=== PATIENT | female | born 1955 | race Caucasian/White ===

== ENCOUNTER → 2020-04-16 | Outpatient (CLI) | payer OTHER ==
[~2020-04-16] MED LIST: AMOXICILLIN500 MG PO; ASPIRIN EC81 MG PO; CELEBREX200 MG PO; COLLAGEN PLUS1 EACH PO; DESMOPRESSIN A0.1 M1 PO; ESCITALOPRAM OX20 MG PO; HYDROCODON-ACE1 EAC6 PO; LEVOTHYROXINE25 MCG PO; LOSARTAN POTAS100 MG PO; LOVASTATIN20 MG PO; PROTONIX 40 MG40 M1 PO
== END ==
LOC: WCC 08:54
PROC: 0JBP0ZZ Excision of Left Lower Leg Subcutaneous Tissue and Fascia, Open Approach (ICD-10-PCS; principal; 2020-04-16)
DX: I83.023 Varicose veins of left lower extremity with ulcer of ankle (principal); L97.822 Non-pressure chronic ulcer of other part of left lower leg with fat layer exposed; I73.9 Peripheral vascular disease, unspecified; I87.2 Venous insufficiency (chronic) (peripheral); G89.29 Other chronic pain; I10 Essential (primary) hypertension; E78.49 Other hyperlipidemia; Z72.0 Tobacco use; I87.1 Compression of vein; Z88.1 Allergy status to other antibiotic agents; Z79.899 Other long term (current) drug therapy

== ENCOUNTER → 2020-04-23 | Outpatient (CLI) | payer OTHER | LOC: WCC 09:00 | PROC: 0KBT0ZZ Excision of Left Lower Leg Muscle, Open Approach (ICD-10-PCS; principal; 2020-04-23) | DX: L97.825 Non-pressure chronic ulcer of other part of left lower leg with muscle involvement without evidence of necrosis (principal); Z88.1 Allergy status to other antibiotic agents; Z79.899 Other long term (current) drug therapy ==

== ENCOUNTER → 2020-04-30 | Outpatient (CLI) | payer OTHER | LOC: WCC 09:00 | PROC: 0KBT0ZZ Excision of Left Lower Leg Muscle, Open Approach (ICD-10-PCS; principal; 2020-04-30) | DX: I83.023 Varicose veins of left lower extremity with ulcer of ankle (principal); L97.325 Non-pressure chronic ulcer of left ankle with muscle involvement without evidence of necrosis; G89.29 Other chronic pain; I10 Essential (primary) hypertension; E78.49 Other hyperlipidemia; Z72.0 Tobacco use; I87.1 Compression of vein ==

== ENCOUNTER → 2020-05-07 | Outpatient (CLI) | payer OTHER | LOC: WCC 09:00 | PROC: 0JBP0ZZ Excision of Left Lower Leg Subcutaneous Tissue and Fascia, Open Approach (ICD-10-PCS; principal; 2020-05-07) | DX: I83.023 Varicose veins of left lower extremity with ulcer of ankle (principal); L97.322 Non-pressure chronic ulcer of left ankle with fat layer exposed; I87.2 Venous insufficiency (chronic) (peripheral); I96 Gangrene, not elsewhere classified; G89.29 Other chronic pain; I10 Essential (primary) hypertension; E78.49 Other hyperlipidemia; I87.1 Compression of vein; H26.9 Unspecified cataract; M19.90 Unspecified osteoarthritis, unspecified site; Z88.1 Allergy status to other antibiotic agents; Z79.2 Long term (current) use of antibiotics; Z79.1 Long term (current) use of non-steroidal anti-inflammatories (NSAID); Z79.899 Other long term (current) drug therapy ==

== ENCOUNTER → 2020-05-14 | Outpatient (CLI) | payer OTHER | LOC: WCC 09:00 | PROC: 0KBT0ZZ Excision of Left Lower Leg Muscle, Open Approach (ICD-10-PCS; principal; 2020-05-14) | DX: I83.023 Varicose veins of left lower extremity with ulcer of ankle (principal); L97.323 Non-pressure chronic ulcer of left ankle with necrosis of muscle; I87.2 Venous insufficiency (chronic) (peripheral); G89.29 Other chronic pain; I87.1 Compression of vein; I10 Essential (primary) hypertension; E78.49 Other hyperlipidemia; Z88.1 Allergy status to other antibiotic agents; Z79.2 Long term (current) use of antibiotics; Z79.1 Long term (current) use of non-steroidal anti-inflammatories (NSAID); Z79.899 Other long term (current) drug therapy ==

== ENCOUNTER → 2020-05-21 | Outpatient (CLI) | payer OTHER | END | disposition home or self-care (01) | LOC: WCC 09:00 | PROC: 0HBNXZZ Excision of Left Foot Skin, External Approach (ICD-10-PCS; principal; 2020-05-21) | DX: I83.023 Varicose veins of left lower extremity with ulcer of ankle (principal); I73.9 Peripheral vascular disease, unspecified; I87.2 Venous insufficiency (chronic) (peripheral); G89.29 Other chronic pain; I10 Essential (primary) hypertension; E78.49 Other hyperlipidemia; I87.1 Compression of vein; Z72.0 Tobacco use ==

== ENCOUNTER → 2020-06-04 | Outpatient (CLI) | payer OTHER | LOC: WCC 09:00 | PROC: 0KBT0ZZ Excision of Left Lower Leg Muscle, Open Approach (ICD-10-PCS; principal; 2020-06-04) | DX: I96 Gangrene, not elsewhere classified (principal); L97.523 Non-pressure chronic ulcer of other part of left foot with necrosis of muscle; H26.9 Unspecified cataract; I10 Essential (primary) hypertension; M19.90 Unspecified osteoarthritis, unspecified site; Z88.0 Allergy status to penicillin; Z79.2 Long term (current) use of antibiotics; Z79.891 Long term (current) use of opiate analgesic; Z79.1 Long term (current) use of non-steroidal anti-inflammatories (NSAID); Z79.899 Other long term (current) drug therapy ==

== ENCOUNTER → 2020-06-20 | Outpatient (CLI) | payer OTHER | LOC: WCC 09:23 | PROC: 0KBT0ZZ Excision of Left Lower Leg Muscle, Open Approach (ICD-10-PCS; principal; 2020-06-20) | DX: I83.023 Varicose veins of left lower extremity with ulcer of ankle (principal); L97.323 Non-pressure chronic ulcer of left ankle with necrosis of muscle; I96 Gangrene, not elsewhere classified; I87.2 Venous insufficiency (chronic) (peripheral); G89.29 Other chronic pain; I10 Essential (primary) hypertension; I87.1 Compression of vein; E78.49 Other hyperlipidemia; H26.9 Unspecified cataract; M19.90 Unspecified osteoarthritis, unspecified site; Z79.891 Long term (current) use of opiate analgesic; Z79.2 Long term (current) use of antibiotics; Z79.899 Other long term (current) drug therapy; Z79.1 Long term (current) use of non-steroidal anti-inflammatories (NSAID); Z88.1 Allergy status to other antibiotic agents ==

== ENCOUNTER → 2020-06-27 | Outpatient (CLI) | payer OTHER | LOC: WCC 09:29 | PROC: 0KBT0ZZ Excision of Left Lower Leg Muscle, Open Approach (ICD-10-PCS; principal; 2020-06-27) | DX: I83.023 Varicose veins of left lower extremity with ulcer of ankle (principal); L97.323 Non-pressure chronic ulcer of left ankle with necrosis of muscle; I96 Gangrene, not elsewhere classified; I87.2 Venous insufficiency (chronic) (peripheral); G89.29 Other chronic pain; I10 Essential (primary) hypertension; H26.9 Unspecified cataract; M19.90 Unspecified osteoarthritis, unspecified site; E78.49 Other hyperlipidemia; I87.1 Compression of vein; Z79.1 Long term (current) use of non-steroidal anti-inflammatories (NSAID); Z79.891 Long term (current) use of opiate analgesic; Z79.2 Long term (current) use of antibiotics; Z79.899 Other long term (current) drug therapy; Z88.1 Allergy status to other antibiotic agents ==

== ENCOUNTER → 2020-07-04 | Outpatient (CLI) | payer OTHER | LOC: WCC 09:30 | PROC: 0HRNXJZ Replacement of Left Foot Skin with Synthetic Substitute, External Approach (ICD-10-PCS; principal; 2020-07-04) | DX: I83.023 Varicose veins of left lower extremity with ulcer of ankle (principal); L97.323 Non-pressure chronic ulcer of left ankle with necrosis of muscle; I96 Gangrene, not elsewhere classified; I87.2 Venous insufficiency (chronic) (peripheral); G89.29 Other chronic pain; I10 Essential (primary) hypertension; E78.49 Other hyperlipidemia; I87.1 Compression of vein; M19.90 Unspecified osteoarthritis, unspecified site; H26.9 Unspecified cataract; Z79.1 Long term (current) use of non-steroidal anti-inflammatories (NSAID); Z79.891 Long term (current) use of opiate analgesic; Z79.2 Long term (current) use of antibiotics; Z79.899 Other long term (current) drug therapy; Z88.1 Allergy status to other antibiotic agents | CPT/HCPCS: Q4101 ==

== ENCOUNTER → 2020-07-11 | Outpatient (CLI) | payer OTHER | LOC: WCC 09:30 | PROC: 0HRLXJZ Replacement of Left Lower Leg Skin with Synthetic Substitute, External Approach (ICD-10-PCS; principal; 2020-07-11) | PROC: 2W1RX6Z Compression of Left Lower Leg using Pressure Dressing (ICD-10-PCS; 2020-07-11) | DX: I83.023 Varicose veins of left lower extremity with ulcer of ankle (principal); L97.323 Non-pressure chronic ulcer of left ankle with necrosis of muscle; I96 Gangrene, not elsewhere classified; I87.2 Venous insufficiency (chronic) (peripheral); G89.29 Other chronic pain; I10 Essential (primary) hypertension; E78.49 Other hyperlipidemia; M19.90 Unspecified osteoarthritis, unspecified site; I87.1 Compression of vein; Z79.1 Long term (current) use of non-steroidal anti-inflammatories (NSAID); Z79.2 Long term (current) use of antibiotics; Z79.899 Other long term (current) drug therapy; Z88.1 Allergy status to other antibiotic agents | CPT/HCPCS: 97605; Q4101 ==

== ENCOUNTER → 2020-07-18 | Outpatient (CLI) | payer OTHER | LOC: WCC 09:21 | PROC: 0KBT0ZZ Excision of Left Lower Leg Muscle, Open Approach (ICD-10-PCS; principal; 2020-07-18) | PROC: 2W1RX6Z Compression of Left Lower Leg using Pressure Dressing (ICD-10-PCS; 2020-07-18) | DX: I83.023 Varicose veins of left lower extremity with ulcer of ankle (principal); L97.323 Non-pressure chronic ulcer of left ankle with necrosis of muscle; I96 Gangrene, not elsewhere classified; I87.2 Venous insufficiency (chronic) (peripheral); G89.29 Other chronic pain; I10 Essential (primary) hypertension; I87.1 Compression of vein; E78.49 Other hyperlipidemia; H26.9 Unspecified cataract; M19.90 Unspecified osteoarthritis, unspecified site; Z79.1 Long term (current) use of non-steroidal anti-inflammatories (NSAID); Z79.891 Long term (current) use of opiate analgesic; Z79.2 Long term (current) use of antibiotics; Z79.899 Other long term (current) drug therapy; Z88.1 Allergy status to other antibiotic agents ==

== ENCOUNTER → 2020-07-25 | Outpatient (CLI) | payer OTHER | LOC: WCC 09:30 | PROC: 0HRNXJZ Replacement of Left Foot Skin with Synthetic Substitute, External Approach (ICD-10-PCS; principal; 2020-07-25) | PROC: 2W1RX6Z Compression of Left Lower Leg using Pressure Dressing (ICD-10-PCS; 2020-07-25) | DX: I83.023 Varicose veins of left lower extremity with ulcer of ankle (principal); L97.323 Non-pressure chronic ulcer of left ankle with necrosis of muscle; I96 Gangrene, not elsewhere classified; I87.2 Venous insufficiency (chronic) (peripheral); I10 Essential (primary) hypertension; G89.29 Other chronic pain; E78.49 Other hyperlipidemia; I87.1 Compression of vein; H26.9 Unspecified cataract; M19.90 Unspecified osteoarthritis, unspecified site; Z79.1 Long term (current) use of non-steroidal anti-inflammatories (NSAID); Z79.891 Long term (current) use of opiate analgesic; Z79.2 Long term (current) use of antibiotics; Z79.899 Other long term (current) drug therapy; Z88.1 Allergy status to other antibiotic agents | CPT/HCPCS: 97605; Q4101 ==

== ENCOUNTER → 2020-08-01 | Outpatient (CLI) | payer OTHER | LOC: WCC 09:30 | DX: Z53.9 Procedure and treatment not carried out, unspecified reason (principal) ==

== ENCOUNTER → 2020-08-02 | Outpatient (CLI) | payer OTHER | LOC: WCC 11:30 | PROC: 0JBP0ZZ Excision of Left Lower Leg Subcutaneous Tissue and Fascia, Open Approach (ICD-10-PCS; principal; 2020-08-02) | DX: I83.023 Varicose veins of left lower extremity with ulcer of ankle (principal); I96 Gangrene, not elsewhere classified; L97.323 Non-pressure chronic ulcer of left ankle with necrosis of muscle; I87.2 Venous insufficiency (chronic) (peripheral); G89.29 Other chronic pain; I10 Essential (primary) hypertension; E78.49 Other hyperlipidemia; M19.90 Unspecified osteoarthritis, unspecified site; Z79.1 Long term (current) use of non-steroidal anti-inflammatories (NSAID); Z79.891 Long term (current) use of opiate analgesic; Z79.2 Long term (current) use of antibiotics; Z79.899 Other long term (current) drug therapy; Z88.1 Allergy status to other antibiotic agents | CPT/HCPCS: 87070; 87077; 87186; 87205 ==

== ENCOUNTER → 2020-08-16 | Outpatient (CLI) | payer OTHER | LOC: WCC 09:30 | DX: I83.023 Varicose veins of left lower extremity with ulcer of ankle (principal); I87.2 Venous insufficiency (chronic) (peripheral); L97.822 Non-pressure chronic ulcer of other part of left lower leg with fat layer exposed; I73.9 Peripheral vascular disease, unspecified; G89.29 Other chronic pain; I10 Essential (primary) hypertension; E78.49 Other hyperlipidemia; F17.200 Nicotine dependence, unspecified, uncomplicated; I87.1 Compression of vein; Z88.1 Allergy status to other antibiotic agents; Z79.2 Long term (current) use of antibiotics; Z79.891 Long term (current) use of opiate analgesic; Z79.899 Other long term (current) drug therapy ==

== ENCOUNTER → 2020-11-08 | Outpatient (CLI) | payer MEDICARE | LOC: EXRD 09:48 | DX: R07.81 Pleurodynia (principal); M85.80 Other specified disorders of bone density and structure, unspecified site | CPT/HCPCS: 71101 ==

== ENCOUNTER → 2021-03-28 | Outpatient (CLI) | payer MEDICARE | LOC: CT 03-04 08:30 | DX: K44.9 Diaphragmatic hernia without obstruction or gangrene (principal); R10.9 Unspecified abdominal pain; R11.0 Nausea | CPT/HCPCS: 36415; 82565; Q9967 ==

== ENCOUNTER 2021-05-14 12:51 | Emergency (ER) | payer MEDICARE ==
[2021-05-14 13:37] LABS: HEMOGLOBIN 13.2 gm/dl (12.3-15.3); RED BLOOD COUNT 4.04 M/UL (4.00-5.10); WHITE BLOOD COUNT 12.1 K/UL (4.5-11.0)
[2021-05-14 13:56] LABS: BUN/CREATININE RATIO 19 (0-10)
[2021-05-14] MEDS ORDERED: CIPRO250 MG PO (17:23)
[2021-05-14] MEDS ORDERED: BACTRIM DS TAB1 EACH PO (17:30)
== END 2021-05-14 17:46 | disposition home or self-care (01) ==
LOC: ER1 12:51
DX: I95.1 Orthostatic hypotension (principal); E86.0 Dehydration; N39.0 Urinary tract infection, site not specified; K21.9 Gastro-esophageal reflux disease without esophagitis; I10 Essential (primary) hypertension
CPT/HCPCS: 71045; 80053; 81001; 82550; 82553; 83735; 83874; 84484; 85025; 87086; 93005; 96374; 99285; J0696; J7030; J7040

== ENCOUNTER → 2021-08-29 | Outpatient (CLI) | payer MEDICARE ==
[~2021-08-29] MED LIST changes: +BACTRIM DS TAB1 EACH PO; +CIPRO250 MG PO
== END ==
LOC: EXRD 10:08
DX: Z78.0 Asymptomatic menopausal state (principal); M85.89 Other specified disorders of bone density and structure, multiple sites
CPT/HCPCS: 77080

== ENCOUNTER 2021-12-15 13:33 | Observation (INO) | payer MEDICARE ==
[~2021-12-15] VITALS: Ht 170.2 cm; Wt 47.2 kg
[2021-12-15 14:55] LABS: HEMOGLOBIN 14.6 gm/dl (12.3-15.3); RED BLOOD COUNT 4.34 M/UL (4.00-5.10)
[2021-12-16] MEDS ORDERED: ATENOLOL50 MG PO (02:00)
[2021-12-16 03:29] LABS: RED BLOOD COUNT 3.74 M/UL (4.00-5.10); WHITE BLOOD COUNT 6.5 K/UL (4.5-11.0)
[2021-12-16 03:30] LABS: HEMOGLOBIN 12.3 gm/dl (12.3-15.3)
[2021-12-16] MEDS ORDERED: PROTONIX 40 MG40 M1 PO ×3 (09:34→14:53)
[2021-12-16] MEDS ORDERED: DICYCLOMINE HCL10 MG PO (10:46)
[2021-12-16] MEDS ORDERED: CLOPIDOGREL75 MG PO (10:46)
== END 2021-12-16 17:13 | disposition home or self-care (01) ==
LOC: ER1 13:33 → MED SURG 4 18:59 → CDU 18:59 → MED SURG 4 18:59
PROVIDERS: Student in an Organized Health Care Education/Training Program; ADMIT Internal Medicine
DX: N17.9 Acute kidney failure, unspecified (principal); G89.29 Other chronic pain; R10.31 Right lower quadrant pain; R10.32 Left lower quadrant pain; R11.2 Nausea with vomiting, unspecified; R19.7 Diarrhea, unspecified; K21.9 Gastro-esophageal reflux disease without esophagitis; I10 Essential (primary) hypertension; E78.5 Hyperlipidemia, unspecified; E03.9 Hypothyroidism, unspecified; F17.210 Nicotine dependence, cigarettes, uncomplicated; I73.9 Peripheral vascular disease, unspecified; E44.1 Mild protein-calorie malnutrition; Z68.1 Body mass index [BMI] 19.9 or less, adult; Z88.1 Allergy status to other antibiotic agents; Z91.040 Latex allergy status; Z79.01 Long term (current) use of anticoagulants; Z79.02 Long term (current) use of antithrombotics/antiplatelets; Z79.890 Hormone replacement therapy; Z79.899 Other long term (current) drug therapy
CPT/HCPCS: 36415; 71045; 71275; 80053; 81001; 82550; 82553; 82607; 83036; 83540; 83550; 83605; 83690; 83735; 84100; 84439; 84443; 84484; 85025; 85027; 85652; 86140; 87040; 87086; 93005; 96374; 99285; C9113; G0378; J1650; J2405; Q9967